=== PATIENT | male | born 1975 | race Caucasian/White ===

== ENCOUNTER 2020-10-20 18:13 | Emergency (ER) | payer OTHER ==
[2020-10-21 00:11] LABS: BASOPHIL 0.2 % (0-2); EOSINOPHIL 2.4 % (0-5); HCT 49.6 % (42.0-52.0); HGB 16.6 g/dl (13.2-18.0); LYMPHOCYTE 30.4 % (15-48); MCH 29.7 pg (25.0-31.0); MCHC 33.5 g/dL (32.0-36.0); MCV 88.9 fL (78.0-100.0); MONOCYTE 11.5 % (0-12); MPV 10.4 fL (6.0-9.5); NEUTROPHIL 55.1 % (41-80); NRBC 0; PLT 190 K/uL (150-400); RBC 5.58 M/uL (4.70-6.00); RDW 12.1 % (11.5-14.0); WBC 4.6 K/uL (4.0-10.5)
[2020-10-21 00:31] LABS: ALBUMIN 3.9 g/dL (3.4-5.0); BILIRUBIN - TOTAL 0.5 mg/dL (0.2-1.0); BUN/CREAT RATIO (CALC) 9.7 RATIO; CREATININE 1.13 mg/dL (0.67-1.17); GLOBULIN (CALCULATION) 3.2 g/dL; POTASSIUM 3.9 mmol/L (3.5-5.1); TOTAL PROTEIN 7.1 g/dL (6.4-8.2)
[2020-10-21 00:45] LABS: C-REACTIVE PROTEIN 0.5 mg/dL (<=0.90)
[2020-10-21] MEDS ORDERED: AUGMENTIN 875-1 EACH PO (02:10)
[2020-10-21] MEDS ORDERED: AZITHROMYCIN250 MG PO (02:10)
== END 2020-10-21 02:47 | disposition home or self-care (01) ==
LOC: FER 18:13
PROVIDERS: Emergency Medicine
DX: U07.1 COVID-19 (principal); J12.82 Pneumonia due to coronavirus disease 2019
CPT/HCPCS: 36415; 71045; 71275; 80053; 82728; 84484; 85025; 85379; 86140; 93005; J0456; J0692; J2405; J7030; Q9967